=== PATIENT | female | born 1990 | race Caucasian/White ===

== ENCOUNTER 2021-03-26 06:00 | Day surgery (SDC) | payer OTHER | END 2021-03-26 11:50 | disposition home or self-care (01) | LOC: AMB-ENDOS 06:00 | PROVIDERS: ATTEND Surgery | DX: D13.1 Benign neoplasm of stomach (principal); K44.9 Diaphragmatic hernia without obstruction or gangrene; Z20.822 Contact with and (suspected) exposure to COVID-19 ==

== ENCOUNTER 2025-07-03 11:39 | Emergency (ER) | payer OTHER ==
[~2025-07-03] VITALS: Ht 160 cm; Wt 79.4 kg
[2025-07-03] MEDS ORDERED: LEVOTHYROXINE25 MCG PO (12:16)
[2025-07-03] MEDS ORDERED: PRENATA CHEWAB1 EACH PO (12:17)
[2025-07-03] MEDS ORDERED: PROTONIX40 MG PO (12:17)
[2025-07-03] MEDS ORDERED: 0.9 % SODIUM CHLORIDE 1,000 ML IV ONE (12:45)
[2025-07-03 15:55] LABS: BASO % 0.4 % (0.1-1.2); EOS # 0.01 (0.04-0.54); EOS % 0.2 % (0.7-7.0); LYMPH # 0.86 (1.18-3.74); LYMPH % 15.4 % (19.3-53.1); MEAN PLATELET VOLUME 10.10 fl (9.4-12.4); MONO # 0.51 (0.24-0.82); MONO % 9.1 % (4.7-12.5); NEUT # 4.10 (1.56-6.13); NEUT % 73.1 % (34.0-71.1); RED CELL DISTRIBUTION WIDTH 14.4 % (11.6-14.4)
[2025-07-03 16:07] LABS: ERYTHROCYTE SEDIMENTATION RATE 76 mm/hr (0-20)
[2025-07-03 16:18] LABS: INR < 0.93
[2025-07-03 16:57] LABS: ALT/SGPT 23.0 U/L (12-78); AST/SGOT 23.0 U/L (15-37); BILIRUBIN TOTAL 0.42 mg/dL (0.3-1.2); BUN CREA RATIO 18.0 (7.0-25.0); CREATININE SERUM 0.39 mg/dL (0.55-1.02); GFR 188.13; GLOBULINA 4.1 G/DL (2.4-3.5); GLUCOSE FASTING 66.0 mg/dL (65-100); OSMOLALITY SERUM 276.0 MOSM/KG (275-295)
[2025-07-03 17:22] LABS: URINE APPEARANCE Cloudy; URINE BILIRRUBIN Negative (NEGATIVE); URINE BLOOD Negative; URINE COLOR Yellow; URINE GLUCOSE Negative (NEGATIVE); URINE LEUKOCYTE Trace; URINE NITRATE Negative; URINE PROTEIN Trace (NEGATIVE); URINE UROBILINOGEN 1.0 E.U./dl
[2025-07-03 17:28] LABS: URINE CAST 2.12 uL (0.0-1.40); URINE EPITHELIAL CELLS 30.6 uL (0.0-38.8); URINE RBC 9.3 uL (0.0-20.8); URINE WBC 112.3 uL (0.0-23.2)
[2025-07-03 17:34] LABS: COVID-19 AG NEGATIVE (NEGATIVE)
[2025-07-03 17:43] LABS: TYPE CELLS SQUAMOUS; URINE BACTERIA > 9821.5 uL (0.0-1933); URINE KETONE 80 (NEGATIVE)
[2025-07-03] MEDS ORDERED: GUAIFENESIN-DM 15 M1 PO (18:04)
[2025-07-03] MEDS ORDERED: GUAIFENESIN 100 MG/5 ML BLIST.PACK PO ONE (18:15)
== END 2025-07-03 18:43 | disposition home or self-care (01) ==
LOC: ER 11:39
DX: O26.892 Other specified pregnancy related conditions, second trimester (principal); B34.8 Other viral infections of unspecified site; O99.282 Endocrine, nutritional and metabolic diseases complicating pregnancy, second trimester; Z3A.24 24 weeks gestation of pregnancy; Z20.822 Contact with and (suspected) exposure to COVID-19; Z91.018 Allergy to other foods